=== PATIENT | male | born 1960 | race Caucasian/White ===

== ENCOUNTER → 2024-01-21 | Outpatient (CLI) | payer OTHER | LOC: COL.RAD 09:09 | DX: M77.52 Other enthesopathy of left foot and ankle (principal) ==

== ENCOUNTER 2024-05-20 15:40 | Inpatient (IN) | payer OTHER ==
[~2024-05-20] VITALS: Ht 175.3 cm; Wt 76.0 kg
[2024-05-20 16:28] LABS: BASO % 0.3 % (0.0-2.0); EOS % 0.4 % (0.0-4.0); GRAN # 6.9 K/mm3 (1.4-6.5); GRAN % 74.8 % (42.2-75.2); HEMATOCRIT 41.3 % (42.0-52.0); HEMOGLOBIN 13.9 g/dl (13.5-18.0); LYMPH # 1.5 K/mm3 (1.2-3.4); LYMPH % 15.9 % (20.0-51.0); MEAN CELL VOLUME 91 fl (80.0-100.0); MEAN CORPUSCULAR HEMOGLOBIN 31 pg (27-31); MEAN CORPUSCULAR HGB CONC 34 g/dl (33.0-37.0); MEAN PLATELET VOLUME 9.6 fl (7.4-10.4); MONO # 0.8 K/mm3 (0.1-0.6); MONO % 8.3 % (1.7-9.3); PLATELET COUNT 244 K/mm3 (130-400); RED BLOOD COUNT 4.56 M/mm3 (4.20-5.60); REDCELL DISTRIBUTION WIDTH-CV 12.5 % (11.5-14.5)
[2024-05-20] MEDS ORDERED: NS 1,000 ML IV ONE ×2 (16:30→18:15)
[2024-05-20 16:46] LABS: ALBUMIN 4.3 g/dL (3.4-4.8); BILIRUBIN,TOTAL 1.1 mg/dL (0.2-1.2); CALCIUM 9.9 mg/dL (8.4-10.2); CREATININE, serum 1.56 mg/dL (0.72-1.25); POTASSIUM 4.1 mEq/L (3.5-4.5); TOTAL PROTEIN 7.2 g/dl (6.2-8.1)
[2024-05-20] MEDS ORDERED: ZYLOPRIM 100MG100 MG PO (18:26)
[2024-05-20] MEDS ORDERED: ZETIA 10MG TAB10 MG PO (18:27)
[2024-05-20] MEDS ORDERED: PRINIVIL40 MG PO (18:28)
[2024-05-20] MEDS ORDERED: CRESTOR40 MG PO (18:29)
[2024-05-20] MEDS ORDERED: GLUCOPHAGE850 MG/TAB PO (18:29)
[2024-05-20] MEDS ORDERED: ASPIRIN 81M81 MG/TA2 PO (18:30)
[2024-05-20] MEDS ORDERED: FLOMAX 0.40.4 MG/CAP PO (18:30)
[2024-05-20] MEDS ORDERED: ROBAXIN 50500 MG/TAB PO (18:31)
[2024-05-20] MEDS ORDERED: LR 1,000 ML IV SCH ×2 (19:15→21:45)
[2024-05-20] MEDS ORDERED: NS 1,000 ML IV SCH (19:15)
[2024-05-20] MEDS ORDERED: Acetaminophen 325 MG TAB PO PRN (19:15)
[2024-05-20] MEDS ORDERED: Tetanus,Diphther Toxoid Adult 0.5 ML SYRINGE IM ONE (20:00)
[2024-05-20] MEDS ORDERED: Dextrose 50% Water 25 GM/50 ML SYRINGE IV PRN (20:00)
[2024-05-20] MEDS ORDERED: Glucagon 1 MG VIAL IM PRN (20:00)
[2024-05-20] MEDS ORDERED: Dextrose (Glucose) 15 GM (4 x 3.75 GM) Chewable TABLET PACK PO PRN (20:00)
[2024-05-20] MEDS ORDERED: Atorvastatin 80 MG TAB PO SCH (21:00)
[2024-05-20] MEDS ORDERED: Methocarbamol 500 MG TAB PO SCH (21:00)
[2024-05-20] MEDS ORDERED: Insulin Lispro (HumaLOG) SQ SCH (21:00)
[2024-05-20] MEDS ORDERED: Rosuvastatin 40 MG **** subs to Atorvastatin 80 MG PO SCH (21:00)
[2024-05-20 21:27] VITALS: BP 132/88; PULSE 75; TEMP 97.8
--- NOTE | 2024-05-20 23:05 | NUR ---
jose arrived from ED at 2119, alert and oriented x4. ambulating with steady gait, indp in room. denies chest pain and shortness of breath. IV to LAC is patent, site CDI with LR running at 100ml/hr. redness and swelling to right hand and right upper extremity, red streak running from palm to bicep of right upper extremity noted and outlined by ED. 2142- LEANA Funk new orders placed to not give and discontinue NS boluses x3 and start continuous LR, orders initiated. pt has no further needs, questions or concerns at this time. call light within reach. will continue to monitor.
[2024-05-21] VITALS (7 sets, daily range): BP systolic 102–109; BP diastolic 65–69; PULSE 79–85; TEMP 98–98.1
[2024-05-21 07:02] LABS: BASO % 0.6 % (0.0-2.0); EOS # 0.1 K/mm3 (0.0-0.7); EOS % 1.1 % (0.0-4.0); GRAN # 4.1 K/mm3 (1.4-6.5); GRAN % 64.3 % (42.2-75.2); HEMATOCRIT 34.1 % (42.0-52.0); HEMOGLOBIN 11.7 g/dl (13.5-18.0); LYMPH # 1.7 K/mm3 (1.2-3.4); LYMPH % 26.7 % (20.0-51.0); MEAN CELL VOLUME 90 fl (80.0-100.0); MEAN CORPUSCULAR HEMOGLOBIN 31 pg (27-31); MEAN CORPUSCULAR HGB CONC 34 g/dl (33.0-37.0); MEAN PLATELET VOLUME 9.6 fl (7.4-10.4); MONO # 0.5 K/mm3 (0.1-0.6); MONO % 7.1 % (1.7-9.3); PLATELET COUNT 198 K/mm3 (130-400); REDCELL DISTRIBUTION WIDTH-CV 12.5 % (11.5-14.5)
[2024-05-21 07:21] LABS: CALCIUM 8.8 mg/dL (8.4-10.2); CREATININE, serum 1.09 mg/dL (0.72-1.25); POTASSIUM 4.1 mEq/L (3.5-4.5)
--- NOTE | 2024-05-21 08:45 | NUR ---
PT LAYING IN BED UPON ENTERING. ASSESSMENT DONE, MEDS GIVEN PER ORDER. PT DENIES PAIN BUT STATES RIGHT HAND IS SORE. 2 PUNCTURES NOTED TO PAL OF RIGHT HAND, NO DRAINAGE NOTED. ERYTHEMA NOTED TO RIGHT WRIST AND UP PTS ARM, PT REPORTS THIS IS AN IMPROVEMENT. LR RUNNING AT 100 MLS/HR IN LEFT AC. PT DENIES NEEDS. BED IN LOWEST POSITION, CALL LIGHT IN REACH
[2024-05-21] MEDS ORDERED: Ezetimibe 10 MG TAB PO SCH (09:00)
[2024-05-21] MEDS ORDERED: Allopurinol 100 MG TAB PO SCH (09:00)
[2024-05-21] MEDS ORDERED: AMOXICILLIN 8751 TAB PO (11:28)
--- NOTE | 2024-05-21 13:00 | NUR ---
IV REMOVED AND PT DRESSED IN PERSONAL CLOTHES. DISCHARGE INSTRUCTIONS GIVEN AND PT VERBALIZED UNDERSTANDING. PT DENIES NEEDS AND AMBULATED TO PERSONAL VEHICLE
== END 2024-05-21 13:00 | disposition home or self-care (01) | DRG 603 ==
LOC: COL.ER 15:40 → MEDICAL 19:18
PROVIDERS: Nurse Practitioner Family; Nurse Practitioner Primary Care; ADMIT Internal Medicine
DX: L03.113 Cellulitis of right upper limb (principal); E87.20 Acidosis, unspecified; N17.9 Acute kidney failure, unspecified; M10.9 Gout, unspecified; E78.5 Hyperlipidemia, unspecified; E11.22 Type 2 diabetes mellitus with diabetic chronic kidney disease; N18.9 Chronic kidney disease, unspecified; C61 Malignant neoplasm of prostate; N40.0 Benign prostatic hyperplasia without lower urinary tract symptoms; I95.9 Hypotension, unspecified; W54.0XXA Bitten by dog, initial encounter; Z88.8 Allergy status to other drugs, medicaments and biological substances; Z79.84 Long term (current) use of oral hypoglycemic drugs; Z79.82 Long term (current) use of aspirin; Z79.899 Other long term (current) drug therapy; Z23 Encounter for immunization
CPT/HCPCS: J2543; J3370; J7030; J7050; J7120